=== PATIENT | male | born 1990 | race Caucasian/White ===

== ENCOUNTER 2019-04-03 18:44 | Emergency (ER) | payer OTHER, SELFPAY ==
[2019-04-03 18:54] VITALS: BP 147/84; PULSE 68; RESP 18; TEMP 37; O2SAT 100; BMI 27.3
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
[2019-04-03] MEDS: HYDROCODONE/ACET 5/325 TABLET 1 TAB PO (19:18)
[2019-04-03] MEDS: KETOROLAC 60 MG/2 ML VIAL IM (19:18)
[2019-04-03 20:14] VITALS: BP 142/76; PULSE 76; RESP 16; O2SAT 100
== END 2019-04-03 20:17 | disposition home or self-care (01) ==
PROVIDERS: Emergency Provider Emergency Medicine
DX: S42.022A Displaced fracture of shaft of left clavicle, initial encounter for closed fracture (principal); V19.3XXA Pedal cyclist (driver) (passenger) injured in unspecified nontraffic accident, initial encounter; Y93.55 Activity, bike riding
CPT/HCPCS: 73030; 96372; 99283; J1885

== ENCOUNTER → 2019-07-11 15:54 | Outpatient (CLI) | payer OTHER, SELFPAY ==
--- NOTE | 2019-07-11 | DI.ECHO.S_ITS ---
[place]---------+ [facility] +---------+ : : [address] : : : : [id number] : : : : Phone: [phone] Echocardiogram Report + + :Name: ANDREW DAS Study Date: 07/11/2019 Height: 69 in : :[facility] Exam Location: [facility] Weight: 185 lb : : Gender: Male BSA: 2.0 m2 : :: 1990 Age: 29 yrs BP: 122/78 mmHg: :Reason For Study: ABNORMAL EKG : : Performed By: Sukhi Vargas : :Referring: UNSPECIFIED : + + Interpretation Summary 1) Normal left ventricular thickness, size, wall motion, and systolic function (EF 60-65%). 2) Normal right ventricular size and function. 3) No significant valvular abnormalities. 4) No prior Echo available for comparison. Procedure: A two-dimensional transthoracic echocardiogram with color flow and Doppler was performed. The study quality was technically good. There is no prior echocardiogram noted for this patient. The patient was in normal sinus rhythm during the exam. Left Ventricle: The left ventricle is normal in size. There is normal left ventricular wall thickness. The ejection fraction is estimated to be 60-65%. Left ventricular systolic function is normal. There are no focal wall motion abnormalities. Right Ventricle: The right ventricle is normal in size and function. Atria: The left atrium is mildly dilated. The right atrium is mildly dilated. The interatrial septum is intact with no evidence for an atrial septal defect. Mitral Valve: The mitral valve is normal in structure and function. There is trace mitral regurgitation. Aortic Valve: The aortic valve is trileaflet. The aortic valve opens well. There is no aortic valve stenosis. No aortic regurgitation is present. Tricuspid Valve: The tricuspid valve is normal in structure and function. No tricuspid regurgitation. Pulmonary artery pressures cannot be estimated because of the lack of a measurable TR jet velocity. Pulmonic Valve: The pulmonic valve is normal in structure and function. There is trace pulmonic regurgitation. Great Vessels: The aortic root is normal size. The dimensions of the ascending aorta are normal. The pulmonary artery is normal size. The IVC is dilated (diameter is greater than 2.1 cm) yet it collapses greater than 50% with a sniff. This suggests a right atrial pressure of 8 mm Hg. Pericardium/ Pleura There is no pericardial effusion. There is no pleural effusion. MMode/2D Measurements & Calculations LVIDd: 4.8 cm LVOT diam: 2.3 cm LVIDs: 2.5 cm Ao root diam: 3.2 cm FS: 47.8 % Aortic Jxn: 2.5 cm EPSS: 0.31 cm asc Aorta Diam: 3.0 cm IVSd: 0.77 cm Ao Arch Diam (Prox Trans): 2.7 cm LVPWd: 1.0 cm LV acuna. diameter/BSA (cm/m^2): 2.4 LV sys. diameter/BSA (cm/m^2): 1.2 LA dimension: 4.3 cm RA long axis: 6.1 cm LA A2 area: 20.9 cm2 RA area: 21.9 cm2 LA A4 area: 22.0 cm2 RA vol: 66.3 ml LA length (vol): 6.5 cm RA : 33.2 ml/m2 LA vol: 60.2 ml IVC diam: 2.2 cm LA vol index: 30.1 ml/m2 Doppler Measurements & Calculations Ao V2 max: 126.8 cm/sec LVOT Max Ayo: 124.0 cm/sec Ao V2 mean: 93.0 cm/sec LV V1 max P.1 mmHg Ao max P.4 mmHg LV V1 VTI: 22.9 cm Ao mean P.8 mmHg KRYSTAL(I,D): 3.2 cm2 Ao V2 VTI: 29.4 cm KRYSTAL(V,D): 4.1 cm2 sev ratio: 0.78 KRYSTAL indexed to BSA (cm^2/m^2): 1.6 MV E max ayo: 79.2 cm/sec PA V2 max: 99.4 cm/sec MV A max ayo: 45.4 cm/sec PA V2 mean: 69.8 cm/sec MV E/A: 1.7 PA mean P.2 mmHg Med Peak E' Ayo: 10.8 cm/sec PA pr(Accel): 11.6 mmHg E/E' med: 7.3 PA Accel Time: 0.15 sec Lat Peak E' Ayo: 17.1 cm/sec E/E' lat: 4.6 E/e' average: 6.0 MV dec time: 0.19 sec SV(LVOT): 94.8 ml Reading Physician:04:54 PM
== END ==
DX: R94.31 Abnormal electrocardiogram [ECG] [EKG] (principal)
CPT/HCPCS: 93306